=== PATIENT | male | born 2000 | race Caucasian/White ===

== ENCOUNTER 2022-10-09 17:48 | Emergency (ER) | payer OTHER ==
[2022-10-09 17:52] VITALS: BP 132/74; PULSE 87; RESP 18; TEMP 97.6; BMI 31.6
[2022-10-09 19:34] LABS: PH,URINE 6.5 (5.0-8.0); URINE APPEARANCE CLEAR; URINE BILIRUBIN NEGATIVE (NEGATIVE); URINE COLOR YELLOW; URINE GLUCOSE (UA) NEGATIVE (NEGATIVE); URINE KETONE NEGATIVE (NEGATIVE); URINE LEUK ESTERASE NEGATIVE (NEGATIVE); URINE NITRITE NEGATIVE (NEGATIVE); URINE PROTEIN NEGATIVE (NEGATIVE)
== END 2022-10-09 21:05 | disposition home or self-care (01) ==
LOC: JER 17:48
DX: N50.82 Scrotal pain (principal); N50.812 Left testicular pain; N50.3 Cyst of epididymis
CPT/HCPCS: 36415; 76870-TC; 81003; 87491; 87591; 99284-25